=== PATIENT | male | born 2000 | race Caucasian/White ===

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

== ENCOUNTER 2019-10-14 15:37 | Emergency (ER) | payer SELFPAY ==
[~2019-10-14] VITALS: Ht 182.9 cm; Wt 81.8 kg
[2019-10-14 15:48] VITALS: BP 142/88; TEMP 98
[2019-10-14 16:34] VITALS: PULSE 62
== END 2019-10-14 16:34 | disposition home or self-care (01) ==
LOC: COL.ER 15:37
DX: U07.1 COVID-19 (principal); Z88.1 Allergy status to other antibiotic agents